=== PATIENT | male | born 1930 | race Caucasian/White ===

== ENCOUNTER → 2017-12-01 | Outpatient (CLI) | payer MEDICARE, OTHER | LOC: GMAH 11:34 | PROVIDERS: ATTEND Family Medicine | DX: Z12.5 Encounter for screening for malignant neoplasm of prostate (principal); I10 Essential (primary) hypertension; E78.2 Mixed hyperlipidemia; E11.9 Type 2 diabetes mellitus without complications; R60.0 Localized edema; I65.21 Occlusion and stenosis of right carotid artery | CPT/HCPCS: 84443; 84550; G0103 ==